=== PATIENT | female | born 1965 | race American Indian/Alaskan Native ===

== ENCOUNTER 2017-02-14 19:11 | Emergency (ER) | payer OTHER ==
[2017-02-14 19:18] VITALS: BP 126/65; RESP 16; TEMP 98; O2SAT 98
--- NOTE | 2017-02-14 19:46 | ED PDOC ---
HPI: Allergic Reaction Time Seen by Provider: 02/14/17 19:18 Chief Complaint (Nursing): Abnormal Skin Integrity Chief Complaint (Provider): Possible Allergic Reaction History Per: Patient, EMS, Family History/Exam Limitations: no limitations Onset/Duration Of Symptoms: Hrs (just prior to arrival) Current Symptoms Are (Timing): Better Possible Cause: Food (drank "Chicha Prince" at a restaurant) Associated Symptoms: Skin Rash (left forearm), Swelling (left 3rd, 4th, 5th fingers), Chest Pain (mild "tightness"). denies: Dyspnea, Trouble Swallowing, Dizziness, Itching Home/EMS Treatment: Other (aspirin x1) Additional Complaint(s): Issac Eason is a 51 year old female, with a past medical history inclusive of mitral valve prolapse, who presents to the ED on 02/14/17, via EMS and accompanied by a family member, for the evaluation of a possible allergic reaction, onset of which was approximately 30 minutes after she had ingested approximately 1/2 glass of "Chicha Prince" at a [place] restaurant; containing blue corn to which she has had an adverse reaction in the past. Reaction has been characterized by numbness/swelling in her left forearm, the 3rd, 4th and 5th fingers of her left hand and the 3rd, 4th and 5th toes of her left foot. Associated mild feelings of "chest tightness" also reported, in addition to a few possible hives on the volar aspect of the affected forearm, though she denies any pruritus upon initial evaluation and states that her symptoms seem to be improving. Further denies headache, dizziness, vision changes, outright chest pain, shortness of breath, cough, abdominal pain, nausea, vomiting, diarrhea, swelling to her face/eyes/lips/tongue/throat or a sense of impending doom. No prior history of anxiety or anaphylactic reactions. Has medicated with aspirin x1 prior to arrival per the direction of the ship pilot dispatcher. PMD: in [place] Past Medical History Reviewed: Historical Data, Nursing Documentation, Vital Signs Vital Signs: Last Vital Signs Temp 98.0 F 02/14/17 19:16 Pulse 77 02/14/17 19:16 Resp 16 02/14/17 19:16 BP 126/65 02/14/17 19:16 Pulse Ox 98 02/14/17 19:16 - Medical History PMH: Fractures (right leg), Mitral Valve Prolapse - Surgical History Other surgeries: hardware right leg (10 screws post fx, 2013) - Family History Family History: States: Unknown Family Hx - Home Medications Home Medications: Ambulatory Orders Medication Instructions Recorded DiphenhydrAMINE [Benadryl] 25 mg PO Q4H PRN #20 cap 02/14/17 Epinephrine [Epipen Auto-Injector] 0.3 mg MR ONCE PRN #0.3 ml 02/14/17 Famotidine [Pepcid] 40 mg PO TID PRN #30 tab 02/14/17 Methylprednisolone [Medrol Dose 4 mg PO DAILY PRN #21 mg 02/14/17 Pack (21 tabs)] - Allergies Allergies/Adverse Reactions: Allergies Allergy/AdvReac Type Severity Reaction Status Date / Time Penicillins Allergy RASH Verified 02/14/17 19:16 Review of Systems Eyes: Negative for: Vision Change ENT: Negative for: Mouth Swelling, Throat Pain, Throat Swelling Cardiovascular: Positive for: Chest Pain (tightness but not outright pain) Respiratory: Negative for: Cough, Shortness of Breath Gastrointestinal: Negative for: Vomiting, Abdominal Pain, Diarrhea Skin: Positive for: Rash (left forearm possible hives, non-pruritic) Neurological: Positive for: Numbness (left 3rd-5th fingers, left 3rd-5th toes). Negative for: Dizziness Physical Exam - Reviewed Nursing Documentation Reviewed: Yes Vital Signs Reviewed: Yes - Physical Exam Appears: Positive for: Non-toxic, No Acute Distress Head Exam: Positive for: ATRAUMATIC, NORMOCEPHALIC Skin: Positive for: Normal Color, Warm, Dry. Negative for: Diaphoresis, Pallor , Rash Eye Exam: Positive for: Normal appearance, PERRL ENT: Positive for: Pharynx Is (clear w/patent airway). Negative for: Other (no swelling to tongue/lips) Cardiovascular/Chest: Positive for: Regular Rate, Rhythm. Negative for: Murmur Respiratory: Positive for: Normal Breath Sounds. Negative for: Stridor, Wheezing, Respiratory Distress Pulses-Radial (L): 2+ Back: Positive for: Normal Inspection Extremity: Positive for: Normal ROM (FROM of ghulam extremities), Capillary Refill (<2 seconds), Swelling (noted to skin of left wrist), Other (neurovasc intact. numbness along ulnar aspect of hand. swelilng to wrist isolated to that area. ). Negative for: Deformity Neurologic/Psych: Positive for: Alert, Oriented. Negative for: Motor/Sensory Deficits (5/5 left wrist/arm/fingers, sensation intact) - ECG ECG: Positive for: Interpreted By Me, Viewed By Me ECG Rhythm: Positive for: Sinus Rhythm Interpretation Of Abn EKG: T-wave inversion in V3 but none in V4-6, otherwise unremarkable. Rate: 68 O2 Sat by Pulse Oximetry: 98 (RA) Pulse Ox Interpretation: Normal Disposition - Clinical Impression Clinical Impression: Wrist swelling, Food allergic skin reaction - Patient ED Disposition Is Patient to be Admitted: No Counseled Patient/Family Regarding: Studies Performed, Diagnosis, Need For Followup, Rx Given - Disposition Disposition: Routine/Home Disposition Time: 19:52 Condition: STABLE Prescriptions: DiphenhydrAMINE [Benadryl] 25 mg PO Q4H PRN #20 cap PRN Reason: Itching / Pruritus Epinephrine [Epipen Auto-Injector] 0.3 mg MR ONCE PRN #0.3 ml PRN Reason: Anaphylaxis Methylprednisolone [Medrol Dose Pack (21 tabs)] 4 mg PO DAILY PRN #21 mg PRN Reason: Itching / Pruritus Famotidine [Pepcid] 40 mg PO TID PRN #30 tab PRN Reason: Itching / Pruritus Instructions: Wrist Injury (ED), Food Allergy (ED), Anaphylaxis (ED), Tendinitis (ED) Medical Decision Making Medical Decision Makin:18 Initial Impression: wrist swelling, food allergic skin reaction Initial Plan: * EKG EKG shows NSR at 68bpm with a T-wave inversion in V3 but none in V4-6, as reviewed by QUAN. Otherwise unremarkable. Patient is medically stable and requires no further treatment in the ED at this time, will discharge home with Rx for benadryl, pepcid, a medrol dose pack and an epipen, the latter of which she was instructed to use only in cases of acute anaphylactic reaction. Symptoms of acute anaphylaxis explained to patient, who has expressed full understanding. Counseling was provided and all questions were answered regarding diagnosis and need for follow up with her PMD. There is agreement to discharge plan. Return if symptoms persist or worsen. Clinical Impression: wrist swelling, food allergic skin reaction Scribe Attestation: Documented by Sadia Cunningham, acting as a scribe for Promise Cross PA-C. Provider Scribe Attestation: All medical record entries made by the Scribe were at my direction and personally dictated by me. I have reviewed the chart and agree that the record accurately reflects my personal performance of the history, physical exam, medical decision making, and the department course for this patient. I have also personally directed, reviewed, and agree with the discharge instructions and disposition.
[2017-02-14 20:00] VITALS: PULSE 68
--- NOTE | 2017-02-15 08:04 | CARD ---
APPROVED REPORT EKG Measurement Heart [id number] <Conclusion> Normal sinus rhythm Nonspecific T wave abnormality Abnormal ECG
== END 2017-02-14 20:14 | disposition home or self-care (01) ==
LOC: H.ER 19:11
DX: T78.40XA Allergy, unspecified, initial encounter (principal); R07.89 Other chest pain; I34.1 Nonrheumatic mitral (valve) prolapse

== ENCOUNTER 2017-03-31 17:23 | Emergency (ER) | payer OTHER ==
[2017-03-31 17:38] VITALS: BP 118/71; PULSE 71; RESP 17; TEMP 98.2; O2SAT 100
--- NOTE | 2017-03-31 18:31 | ED PDOC ---
Syncope/Near Syncope/Dizzyness Time Seen by Provider: 03/31/17 17:49 Chief Complaint (Nursing): Syncope Chief Complaint (Provider): Near Syncope History Per: Patient Additional Complaint(s): Pt is a 51 yo female, no PMH, ambulates to ED for eval of near syncopal episode while walking to the train. Pt reports sitting down and the symptoms subsided. Pt reports the last time she ate was ~ 6 hours ago. Finger stick upon arrival 119. No chest pain or SOB. No diaphresis. No headache or dizziness. Past Medical History Reviewed: Nursing Documentation, Vital Signs Vital Signs: Last Vital Signs Temp 98.2 F 03/31/17 17:34 Pulse 71 03/31/17 17:34 Resp 17 03/31/17 17:34 BP 118/71 03/31/17 17:34 Pulse Ox 100 03/31/17 17:34 - Medical History PMH: Fractures (right leg), Mitral Valve Prolapse - Family History Family History: States: Unknown Family Hx - Social History Current smoker - smoking cessation education provided: No Alcohol: None Drugs: Denies - Home Medications Home Medications: Ambulatory Orders Medication Instructions Recorded DiphenhydrAMINE [Benadryl] 25 mg PO Q4H PRN #20 cap 02/14/17 Epinephrine [Epipen Auto-Injector] 0.3 mg MR ONCE PRN #0.3 ml 02/14/17 Famotidine [Pepcid] 40 mg PO TID PRN #30 tab 02/14/17 Methylprednisolone [Medrol Dose 4 mg PO DAILY PRN #21 mg 02/14/17 Pack (21 tabs)] - Allergies Allergies/Adverse Reactions: Allergies Allergy/AdvReac Type Severity Reaction Status Date / Time Penicillins Allergy RASH Verified 03/31/17 17:38 Review of Systems ROS Statement: Except As Marked, All Systems Reviewed And Found Negative Neurological: Positive for: Other (hear syncopal episode) Physical Exam - Reviewed Nursing Documentation Reviewed: Yes Vital Signs Reviewed: Yes - Physical Exam Appears: Positive for: Well, Non-toxic, No Acute Distress Head Exam: Positive for: ATRAUMATIC, NORMAL INSPECTION, NORMOCEPHALIC Skin: Positive for: Normal Color, Warm, DRY Eye Exam: Positive for: EOMI, Normal appearance, PERRL ENT: Positive for: Normal ENT Inspection Neck: Positive for: Normal, Painless ROM Cardiovascular/Chest: Positive for: Regular Rate, Rhythm Respiratory: Positive for: CNT, Normal Breath Sounds Gastrointestinal/Abdominal: Positive for: Normal Exam, Bowel Sounds, Soft Back: Positive for: Normal Inspection Extremity: Positive for: Normal ROM Neurologic/Psych: Positive for: Alert, Oriented - ECG O2 Sat by Pulse Oximetry: 100 Medical Decision Making Medical Decision Making: Finger stick 119 CXR: NAD, as read by QUAN Case endorsed to QUAN Butler at 20:00 pending diagnostic review and re-eval Disposition - Clinical Impression Clinical Impression: Near syncope - Patient ED Disposition Is Patient to be Admitted: No - Disposition Disposition: Transfer of Care ([facility]) Disposition Time: 20:00 Condition: STABLE - POA Present On Arrival: None
--- NOTE | 2017-03-31 18:53 | RAD ---
HISTORY: near syncope COMPARISON: None available TECHNIQUE: Chest PA and lateral FINDINGS: Examination limited by habitus. LUNGS: No focal consolidation. Please note that chest x-ray has limited sensitivity for the detection of pulmonary masses. PLEURA: No significant pleural effusion identified. No definite pneumothorax . CARDIOVASCULAR: Heart size appears top normal. OSSEOUS STRUCTURES: Degenerative changes of the spine. VISUALIZED UPPER ABDOMEN: Unremarkable. OTHER FINDINGS: None. IMPRESSION: No focal consolidation, significant pleural effusion, or definite pneumothorax identified.
[2017-03-31] MEDS ORDERED: Sodium Chloride 0.9% 1,000 ML IV STA (19:34)
[2017-03-31 21:50] LABS: BASO # 0.1 K/uL (0.0-0.2); EOS # 0.1 K/uL (0.0-0.7); EOS % 1.4 % (0.0-4.0); HEMATOCRIT 32.4 % (34.0-47.0); LYMPH % 49.7 % (20.0-40.0); MEAN CELL VOLUME 79.8 fl (81.0-99.0); MEAN CORPUSCULAR HEMOGLOBIN 25.5 pg (27.0-31.0); MEAN PLATELET VOLUME 6.1 fl (7.2-11.7); MONO # 0.5 K/uL (0.0-0.8); MONO % 8.6 % (0.0-10.0); NEUT # 2.4 K/uL (1.8-7.0); NEUT % 39.3 % (50.0-75.0); NRBC % 0.1 % (0.0-0.0); RED CELL DISTRIBUTION WIDTH 15.7 % (11.5-14.5); WHITE BLOOD COUNT 6.1 K/uL (4.8-10.8)
[2017-03-31 22:04] LABS: ALB/GLOB RATIO 1.2 (1.0-2.1); ALKALINE PHOSPHATASE 64 U/L (38-126); ALT/SGPT 34 U/L (9-52); AST/SGOT 26 U/L (14-36); BILIRUBIN,TOTAL 0.3 mg/dl (0.2-1.3); BLOOD UREA NITROGEN 9 mg/dl (7-17); CALCIUM 9.1 mg/dL (8.4-10.2); CARBON DIOXIDE 26 mmol/L (22-30); CHLORIDE 107 mmol/L (98-107); GFR AFRICAN-AMERICAN > 60; GLUCOSE,RANDOM 107 mg/dL (65-105); LIPASE 59 U/L (23-300); POTASSIUM 4.3 MMOL/L (3.6-5.0); SODIUM 140 mmol/l (132-148); TOTAL PROTEIN 6.4 G/DL (6.3-8.2)
[2017-03-31 22:28] LABS: PARTIAL THROMBOPLASTIN TIME 27.2 SECONDS (23.3-32.5)
[2017-04-01] MEDS ORDERED: Sodium Chloride 0.9% 50 ML IV ONE (00:50)
[2017-04-01] MEDS ORDERED: Iodixanol 320 MG/ML 100 ML BOTTLE IV ONE (00:50)
--- NOTE | 2017-04-01 01:54 | ED PDOC ---
- Laboratory Results Result Diagrams: 03/31/17 21:45 03/31/17 21:45 - ECG O2 Sat by Pulse Oximetry: 100 - Progress ED Course And Treament: Case endorsed to flex o writer operator from Alayna GLASS pending labs On re-eval, patient states she is feeling better. D Dimer added for patient recent travel history of return flight from [place] 2 days ago EXAM: CT Angiography Chest With Intravenous Contrast CLINICAL HISTORY: 51 years old, female; Signs and symptoms; Other: Elevated d-dimer; Additional info: Elevated d dimer TECHNIQUE: Axial computed tomographic angiography images of the chest with intravenous contrast using pulmonary embolism protocol. This CT exam was performed using one or more of the following dose reduction techniques: automated exposure control, adjustment of the mA and/or kV according to patient size, and/or use of iterative reconstruction technique. MIP reconstructed images were created and reviewed. Coronal and sagittal reformatted images were created and reviewed. CONTRAST: 95 mL of [id number] administered intravenously. COMPARISON: None FINDINGS: Pulmonary arteries: No pulmonary embolism. Aorta: No thoracic aortic aneurysm. Lungs: Trace left basilar atelectasis. No consolidation. Pleural spaces: No significant effusion. No pneumothorax. Heart: No cardiomegaly. No significant pericardial effusion. Mild right heart dysfunction. Bones: Moderate degenerative disease within the thoracic spine, without acute fracture. Lymph nodes: No pathologically enlarged lymph nodes. Small hiatal hernia. IMPRESSION: No pulmonary embolism. Trace left basilar atelectasis. Patient educated on findings, discharged with instructions to follow up PMD 2-3 days. Advised fluids, iron supplement. Return to ED for worsening/concerning symptoms. Disposition - Clinical Impression Clinical Impression: Near syncope, Anemia - POA Present On Arrival: None - Disposition Disposition: Routine/Home Disposition Time: 01:54 Condition: IMPROVED Additional Instructions: Follow up with primary doctor in 2-3 days. Take iron supplement as directed. Drink plenty of fluids. Return to ED for worsening/concerning symptoms. Instructions: Near Syncope (ED), Anemia (ED)
--- NOTE | 2017-04-01 08:16 | CT ---
PROCEDURE: CT Chest with contrast (Pulmonary Angiogram) HISTORY: elevated d dimer COMPARISON: None available. TECHNIQUE: Axial computed tomography images were obtained of the chest in the pulmonary arterial phase of enhancement. Coronal and sagittal reformatted images were created and reviewed. Intravenous contrast dose: 95 cc of Visipaque 320 Radiation dose: Total exam DLP = 415.25 mGy-cm. This CT exam was performed using one or more of the following dose reduction techniques: Automated exposure control, adjustment of the mA and/or kV according to patient size, and/or use of iterative reconstruction technique. FINDINGS: PULMONARY ARTERIES: Unremarkable. No pulmonary embolism. AORTA: No acute findings. No thoracic aortic aneurysm. The main pulmonary artery is mildly enlarged. LUNGS: No evidence of acute pulmonary disease. Mild bilateral posterior atelectasis noted. . No nodule, mass or pulmonary consolidation. PLEURAL SPACES: Unremarkable. No effusion or pneuomothorax. HEART: The cardiac silhouette is upper normal/ mildly enlarged. No significant pericardial effusion. LYMPH NODES: No lymphadenopathy. BONES, CHEST WALL: Unremarkable. No fracture or destructive lesion OTHER FINDINGS: Unremarkable. IMPRESSION: No evidence of pulmonary embolus. Mild posterior dependent atelectasis. Mildly dilated and mildly thick distal esophagus. Correlate clinically for gastroesophageal reflux. Preliminary report was submitted by [facility].
--- NOTE | 2017-04-01 10:12 | CARD ---
APPROVED REPORT EKG Measurement Heart [id number] <Conclusion> Normal sinus rhythm Nonspecific T wave abnormality Abnormal ECG
== END 2017-04-01 02:19 | disposition home or self-care (01) ==
LOC: H.ER 17:23
DX: R55 Syncope and collapse (principal); D64.9 Anemia, unspecified

== ENCOUNTER 2017-04-05 00:54 | Emergency (ER) | payer OTHER ==
[2017-04-05 01:07] VITALS: BP 133/78; PULSE 72; RESP 16; TEMP 97.7; O2SAT 100
--- NOTE | 2017-04-05 01:40 | ED PDOC ---
HPI: Allergic Reaction Time Seen by Provider: 04/05/17 01:07 Chief Complaint (Nursing): Allergic Reaction Chief Complaint (Provider): allergic reaction History Per: Patient History/Exam Limitations: no limitations Onset/Duration Of Symptoms: Sudden Onset Current Symptoms Are (Timing): Still Present Possible Cause: Food Additional Complaint(s): 51yo female presents to the ED for evaluation of numbness to left lower gums after eating falafel. No SOB or lip swelling. Of note, patient was here in January for similar complaint but at that time it was food with corn in it. Patient complained of similar numbness at that time and was discharged with EpiPen, steroids, benadryl, and pepcid. Patient denies any other medical complaints. Past Medical History Reviewed: Historical Data, Nursing Documentation, Vital Signs Vital Signs: Last Vital Signs Temp 97.7 F 04/05/17 01:04 Pulse 72 04/05/17 01:04 Resp 16 04/05/17 01:04 BP 133/78 04/05/17 01:04 Pulse Ox 100 04/05/17 01:04 - Medical History PMH: Fractures (right leg), Mitral Valve Prolapse - Surgical History Surgical History: No Surg Hx - Family History Family History: States: Unknown Family Hx - Social History Current smoker - smoking cessation education provided: No Alcohol: None Drugs: Denies - Home Medications Home Medications: Ambulatory Orders Medication Instructions Recorded DiphenhydrAMINE [Benadryl] 25 mg PO Q4H PRN #20 cap 02/14/17 Epinephrine [Epipen Auto-Injector] 0.3 mg MR ONCE PRN #0.3 ml 02/14/17 Famotidine [Pepcid] 40 mg PO TID PRN #30 tab 02/14/17 Methylprednisolone [Medrol Dose 4 mg PO DAILY PRN #21 mg 02/14/17 Pack (21 tabs)] - Allergies Allergies/Adverse Reactions: Allergies Allergy/AdvReac Type Severity Reaction Status Date / Time Penicillins Allergy RASH Verified 04/05/17 01:04 Review of Systems ROS Statement: Except As Marked, All Systems Reviewed And Found Negative ENT: Positive for: Other (left lower gum numbness, no lip swelling ) Respiratory: Negative for: Shortness of Breath Physical Exam - Reviewed Nursing Documentation Reviewed: Yes Vital Signs Reviewed: Yes - Physical Exam Appears: Positive for: Well, Non-toxic, No Acute Distress Head Exam: Positive for: ATRAUMATIC, NORMAL INSPECTION, NORMOCEPHALIC Skin: Positive for: Normal Color, Warm, Dry. Negative for: Rash Eye Exam: Positive for: Normal appearance, EOMI, PERRL ENT: Positive for: Pharynx Is (clear ), Other (some crowns and pulled teeth noted to lower left side of mouth ). Negative for: Pharyngeal Erythema, Tonsillar Exudate, Tonsillar Swelling Neck: Positive for: Normal, Painless ROM, Supple Cardiovascular/Chest: Positive for: Regular Rate, Rhythm. Negative for: Murmur , Tachycardia Respiratory: Positive for: Normal Breath Sounds. Negative for: Wheezing, Respiratory Distress Gastrointestinal/Abdominal: Positive for: Normal Exam, Soft. Negative for: Tenderness Back: Positive for: Normal Inspection Extremity: Positive for: Normal ROM. Negative for: Deformity, Swelling Neurologic/Psych: Positive for: Alert, Oriented - ECG O2 Sat by Pulse Oximetry: 100 Pulse Ox Interpretation: Normal (RA) - Progress ED Course And Treament: 0124: Impression: allergic reaction Plan: Benadryl 50mg PO reassess 0314: Patient reports improvement in symptoms after Benadryl and is stable for d /c. Advised to f/u with her PCP in 1-2 days and return to the ED with any worsening or concerning symptoms. Instructed to take Benadryl every 6 hours as needed. pt has epipen from last visit for prior allergic reaction. Scribe Attestation: Documented by Nathalie Foley acting as a scribe for Frances Gil MD. Provider Scribe Attestation: All medical record entries made by the Scribe were at my direction and personally dictated by me. I have reviewed the chart and agree that the record accurately reflects my personal performance of the history, physical exam, medical decision making, and the department course for this patient. I have also personally directed, reviewed, and agree with the discharge instructions and disposition. Disposition - Clinical Impression Clinical Impression: Allergic reaction - Patient ED Disposition Is Patient to be Admitted: No Counseled Patient/Family Regarding: Studies Performed, Diagnosis, Need For Followup - Disposition Disposition: Routine/Home Disposition Time: 03:16 Condition: IMPROVED Additional Instructions: follow up with your primary doctor in 1-2 day take benadryl every 6 hours as needed return to the ED with any worsening or concerning symptoms. Instructions: General Allergic Reaction (ED)
== END 2017-04-05 03:23 | disposition home or self-care (01) ==
LOC: H.ER 00:54
DX: T78.40XA Allergy, unspecified, initial encounter (principal); Z88.0 Allergy status to penicillin; I34.1 Nonrheumatic mitral (valve) prolapse

== ENCOUNTER 2017-09-08 16:19 | Emergency (ER) | payer OTHER ==
[2017-09-08 16:29] VITALS: BP 130/77; PULSE 76; RESP 16; TEMP 98.1; O2SAT 100
--- NOTE | 2017-09-08 17:09 | ED PDOC ---
HPI: Allergic Reaction Time Seen by Provider: 09/08/17 16:50 Chief Complaint (Nursing): Allergic Reaction Chief Complaint (Provider): Possible allergic reaction History Per: Patient History/Exam Limitations: no limitations Onset/Duration Of Symptoms: Days (1) Additional Complaint(s): Patient is a 51 y/o female with no significant past medical history presenting to the emergency department for a possible allergic reaction. Reports that she ate a vitamin D gummy when she started feeling tightening of her throat and tingling on her lips. She then took 25 mg of Benadryl which relieved the symptoms. Denies coughing, or any current complaints. Patient notes similar symptoms from sesame seed oil and other vitamin D supplements. PCP: none provided. Past Medical History Reviewed: Historical Data, Nursing Documentation, Vital Signs Vital Signs: Last Vital Signs Temp 98.1 F 09/08/17 16:26 Pulse 76 09/08/17 16:26 Resp 16 09/08/17 16:26 BP 130/77 09/08/17 16:26 Pulse Ox 100 09/08/17 16:26 - Medical History PMH: Fractures (right leg), Mitral Valve Prolapse - Surgical History Surgical History: No Surg Hx - Family History Family History: States: Unknown Family Hx - Home Medications Home Medications: Ambulatory Orders Medication Instructions Recorded DiphenhydrAMINE [Benadryl] 25 mg PO Q4H PRN #20 cap 02/14/17 Epinephrine [Epipen Auto-Injector] 0.3 mg MR ONCE PRN #0.3 ml 02/14/17 Famotidine [Pepcid] 40 mg PO TID PRN #30 tab 02/14/17 Methylprednisolone [Medrol Dose 4 mg PO DAILY PRN #21 mg 02/14/17 Pack (21 tabs)] DiphenhydrAMINE [Benadryl] 1 tab PO Q6 PRN #24 cap 09/08/17 Epinephrine HCl [Epipen 0.3 mg IM ONCE PRN #0.3 ml 09/08/17 Auto-Injector] Famotidine [Pepcid] 20 mg PO BID #10 tab 09/08/17 Prednisone [Deltasone] 3 tab PO DAILY #15 tablet 09/08/17 - Allergies Allergies/Adverse Reactions: Allergies Allergy/AdvReac Type Severity Reaction Status Date / Time Penicillins Allergy RASH Verified 09/08/17 16:25 Review of Systems ROS Statement: Except As Marked, All Systems Reviewed And Found Negative ENT: Positive for: Other (resolved lip tingling and throat tightening) Physical Exam - Reviewed Nursing Documentation Reviewed: Yes Vital Signs Reviewed: Yes - Physical Exam Appears: Positive for: Well, Non-toxic, No Acute Distress Head Exam: Positive for: ATRAUMATIC, NORMAL INSPECTION, NORMOCEPHALIC Skin: Positive for: Normal Color, Warm, Dry Eye Exam: Positive for: Normal appearance ENT: Positive for: Normal ENT Inspection. Negative for: Tonsillar Swelling ( throat swelling) Neck: Positive for: Normal Cardiovascular/Chest: Positive for: Regular Rate, Rhythm Respiratory: Positive for: Normal Breath Sounds. Negative for: Accessory Muscle Use, Respiratory Distress Extremity: Positive for: Normal ROM Neurologic/Psych: Positive for: Alert, Oriented (x3) - ECG O2 Sat by Pulse Oximetry: 100 (RA) Pulse Ox Interpretation: Normal Disposition - Clinical Impression Clinical Impression: Acute allergic reaction - Patient ED Disposition Is Patient to be Admitted: No Counseled Patient/Family Regarding: Diagnosis, Rx Given - Disposition Disposition: Routine/Home Disposition Time: 17:00 Condition: FAIR Prescriptions: DiphenhydrAMINE [Benadryl] 1 tab PO Q6 PRN #24 cap PRN Reason: Itching / Pruritus Epinephrine HCl [Epipen Auto-Injector] 0.3 mg IM ONCE PRN #0.3 ml PRN Reason: Anaphylaxis Famotidine [Pepcid] 20 mg PO BID #10 tab Prednisone [Deltasone] 3 tab PO DAILY #15 tablet Instructions: General Allergic Reaction (ED) Forms: [employer] (Slovenian) Medical Decision Making Medical Decision Makin Initial impression: possible allergic reaction As discussed with patient, if symptoms return, will start treatment with Prednisone and Pepcid. Upon provider reevaluation patient is feeling better, is medically stable, and requires no further treatment in the ED at this time. Patient will be discharged with Rx for Benadryl, Epipen, Pepcid and Deltasone. Counseling was provided and all questions were answered regarding diagnosis. There is agreement to discharge plan. Return if symptoms persist or worsen. Clinical Impression: Acute allergic reaction Scribe Attestation: Documented by Shena Colmenares, acting as a scribe for MOIZ Gagnon. Provider Scribe Attestation: All medical record entries made by the Scribe were at my direction and personally dictated by me. I have reviewed the chart and agree that the record accurately reflects my personal performance of the history, physical exam, medical decision making, and the department course for this patient. I have also personally directed, reviewed, and agree with the discharge instructions and disposition.
== END 2017-09-08 17:26 | disposition home or self-care (01) ==
LOC: H.ER 16:19
DX: T78.40XA Allergy, unspecified, initial encounter (principal)

== ENCOUNTER 2017-09-22 20:20 | Emergency (ER) | payer OTHER ==
[2017-09-22 20:33] VITALS: BP 110/70; PULSE 77; RESP 16; TEMP 98; O2SAT 99
--- NOTE | 2017-09-22 21:08 | ED PDOC ---
HPI: Allergic Reaction Time Seen by Provider: 09/22/17 20:39 Chief Complaint (Nursing): Shortness Of Breath Chief Complaint (Provider): possible allergic reaction History Per: Patient History/Exam Limitations: no limitations Onset/Duration Of Symptoms: Hrs Current Symptoms Are (Timing): Gone Now Additional History Per: Patient Additional Complaint(s): 51 y/o female no past medical history presents for evaluation of possible allergic reaction prior to arrival. Patient states she was at a [employer] restaurant eating guacamole and chips when she felt tightening of her throat and swelling to her tongue. Patient states she drank water and symptoms seemed to have subsided. Patient states she has been seen multiple time for similar symptoms, which is usually preceded by eating something. Patient is being followed by her PMD for symptoms, and was sent to director sales training for possible goiter, as well as referrals for ENT and salon sales consultant. Patient denies headache, fever, dizziness, chest pain, shortness of breath, difficulty speaking/ swallowing, nausea/vomiting, abdominal pain. Past Medical History Reviewed: Historical Data, Nursing Documentation, Vital Signs Vital Signs: Last Vital Signs Temp 98.0 F 09/22/17 20:29 Pulse 77 09/22/17 20:29 Resp 16 09/22/17 20:29 BP 110/70 09/22/17 20:29 Pulse Ox 99 09/22/17 20:29 - Medical History PMH: Fractures (right leg), Mitral Valve Prolapse Denies: Chronic Kidney Disease - Family History Family History: States: Unknown Family Hx - Home Medications Home Medications: Ambulatory Orders Medication Instructions Recorded DiphenhydrAMINE [Benadryl] 25 mg PO Q4H PRN #20 cap 02/14/17 Epinephrine [Epipen Auto-Injector] 0.3 mg MR ONCE PRN #0.3 ml 02/14/17 Famotidine [Pepcid] 40 mg PO TID PRN #30 tab 02/14/17 Methylprednisolone [Medrol Dose 4 mg PO DAILY PRN #21 mg 02/14/17 Pack (21 tabs)] DiphenhydrAMINE [Benadryl] 1 tab PO Q6 PRN #24 cap 09/08/17 Epinephrine HCl [Epipen 0.3 mg IM ONCE PRN #0.3 ml 09/08/17 Auto-Injector] Famotidine [Pepcid] 20 mg PO BID #10 tab 09/08/17 Prednisone [Deltasone] 3 tab PO DAILY #15 tablet 09/08/17 - Allergies Allergies/Adverse Reactions: Allergies Allergy/AdvReac Type Severity Reaction Status Date / Time Penicillins Allergy RASH Verified 09/22/17 20:29 Review of Systems ROS Statement: Except As Marked, All Systems Reviewed And Found Negative ENT: Positive for: Throat Swelling Physical Exam - Reviewed Nursing Documentation Reviewed: Yes Vital Signs Reviewed: Yes - Physical Exam Appears: Positive for: Well, Non-toxic, No Acute Distress (resting comfortably, speaking in full sentences) Head Exam: Positive for: ATRAUMATIC, NORMAL INSPECTION, NORMOCEPHALIC Skin: Positive for: Normal Color Eye Exam: Positive for: Normal appearance ENT: Positive for: Normal ENT Inspection, Other (airway patent, uvula midline). Negative for: Pharyngeal Erythema, Tonsillar Exudate, Tonsillar Swelling Neck: Positive for: Normal, Painless ROM Cardiovascular/Chest: Positive for: Regular Rate, Rhythm Respiratory: Positive for: Normal Breath Sounds Gastrointestinal/Abdominal: Positive for: Normal Exam Back: Positive for: Normal Inspection Extremity: Positive for: Normal ROM Neurologic/Psych: Positive for: Alert, Oriented - ECG O2 Sat by Pulse Oximetry: 99 - Progress ED Course And Treament: Benadryl PO Patient asymptomatic, vitals stable, no respiratory distress. Patient requires no further intervention in the ED and is stable for discharge. Patient seen in ED 09/08/17 with similar presentation,, states she was given prescriptions for benadryl, prednisone, and epipen which she has not filled. Patient advised to fill prescriptions and take as directed. Follow up with specialists as advised by PMD. Return to ED for worsening/concerning symptoms. Disposition - Clinical Impression Clinical Impression: Allergic reaction - Patient ED Disposition Is Patient to be Admitted: No Counseled Patient/Family Regarding: Diagnosis, Need For Followup - Disposition Disposition: Routine/Home Disposition Time: 21:16 Condition: GOOD Additional Instructions: Follow up with specialists as previously instructed. Fill medications from previous ED visit and take as directed. Return to ED for worsening/concerning symptoms. Instructions: Food Allergy (ED) Forms: [employer] (Mozambican)
== END 2017-09-22 22:13 | disposition home or self-care (01) ==
LOC: H.ER 20:20
DX: T78.40XA Allergy, unspecified, initial encounter (principal); I34.1 Nonrheumatic mitral (valve) prolapse; Z88.0 Allergy status to penicillin

== ENCOUNTER 2017-09-29 21:34 | Emergency (ER) | payer OTHER ==
[2017-09-29 21:48] VITALS: BP 124/79; PULSE 76; RESP 20; TEMP 98.8; O2SAT 97
--- NOTE | 2017-09-29 22:14 | ED PDOC ---
HPI: CCC, URI, Sore Throat Time Seen by Provider: 09/29/17 21:57 Chief Complaint (Nursing): ENT Problem Chief Complaint (Provider): ENT Problem History Per: Patient History/Exam Limitations: no limitations Onset/Duration Of Symptoms: Days (x3 weeks) Current Symptoms Are (Timing): Better Additional Complaint(s): Issac Aguilar is a 51 year old female who presents to the emergency department with a complaint of throat swelling ongoing for 3 weeks. Of note, patient was seen in ED multiple times for similar symptoms. She stated she saw an ENT in [place] recently with abnormal laryngoscopy results which prompted CT neck and thyroid US. Patient also went to urgent care earlier today who suggested staying on current Benadryl 15mg, Prednisone 60mg and Pepcid 20mg regime with pending orthopedic specialist appointment for tomorrow. She reported feeling better upon arrival to ED. PMD: none provided Past Medical History Reviewed: Historical Data, Nursing Documentation, Vital Signs Vital Signs: Last Vital Signs Temp 98.8 F 09/29/17 21:43 Pulse 76 09/29/17 21:43 Resp 20 09/29/17 21:43 BP 124/79 09/29/17 21:43 Pulse Ox 97 09/29/17 22:26 - Medical History PMH: Fractures (right leg), Mitral Valve Prolapse Denies: Chronic Kidney Disease - Surgical History Other surgeries: right foot - Family History Family History: States: Unknown Family Hx - Social History Current smoker - smoking cessation education provided: No Alcohol: Social Drugs: Denies - Home Medications Home Medications: Ambulatory Orders Medication Instructions Recorded DiphenhydrAMINE [Benadryl] 25 mg PO Q4H PRN #20 cap 02/14/17 Epinephrine [Epipen Auto-Injector] 0.3 mg MR ONCE PRN #0.3 ml 02/14/17 Famotidine [Pepcid] 40 mg PO TID PRN #30 tab 02/14/17 Methylprednisolone [Medrol Dose 4 mg PO DAILY PRN #21 mg 02/14/17 Pack (21 tabs)] DiphenhydrAMINE [Benadryl] 1 tab PO Q6 PRN #24 cap 09/08/17 Epinephrine HCl [Epipen 0.3 mg IM ONCE PRN #0.3 ml 09/08/17 Auto-Injector] Famotidine [Pepcid] 20 mg PO BID #10 tab 09/08/17 Prednisone [Deltasone] 3 tab PO DAILY #15 tablet 09/08/17 - Allergies Allergies/Adverse Reactions: Allergies Allergy/AdvReac Type Severity Reaction Status Date / Time Penicillins Allergy RASH Verified 09/22/17 20:29 Review of Systems ROS Statement: Except As Marked, All Systems Reviewed And Found Negative ENT: Positive for: Throat Swelling Physical Exam - Reviewed Nursing Documentation Reviewed: Yes Vital Signs Reviewed: Yes - Physical Exam Appears: Positive for: Well, Non-toxic, No Acute Distress Head Exam: Positive for: ATRAUMATIC, NORMAL INSPECTION, NORMOCEPHALIC Skin: Positive for: Normal Color Eye Exam: Positive for: Normal appearance ENT: Positive for: Normal ENT Inspection. Negative for: Pharyngeal Erythema, Tonsillar Exudate, Tonsillar Swelling Neck: Positive for: Normal, Painless ROM, Supple. Negative for: Decreased ROM Cardiovascular/Chest: Positive for: Regular Rate, Rhythm, Chest Non Tender Respiratory: Positive for: Normal Breath Sounds, Accessory Muscle Use. Negative for: Decreased Breath Sounds, Respiratory Distress Neurologic/Psych: Positive for: Alert, Oriented - ECG O2 Sat by Pulse Oximetry: 97 (RA) Pulse Ox Interpretation: Normal Medical Decision Making Medical Decision Making: Initial Impression: Throat swelling Scribe Attestation: Documented by Irina Sanchez, acting as a scribe for Sarita Alba MD. Provider Scribe Attestation: All medical record entries made by the Scribe were at my direction and personally dictated by me. I have reviewed the chart and agree that the record accurately reflects my personal performance of the history, physical exam, medical decision making, and the department course for this patient. I have also personally directed, reviewed, and agree with the discharge instructions and disposition. Disposition - Clinical Impression Clinical Impression: Allergic reaction - Patient ED Disposition Is Patient to be Admitted: No - Disposition Disposition: Routine/Home Disposition Time: 22:39 Condition: IMPROVED Additional Instructions: FOLLOW-UP WITH PMD WITHIN 2 DAYS FOR REEVALUATION AND CANT HOOKER TOMORROW. CONTINUE CURRENT MEDICATIONS. Instructions: Allergies (ED) Forms: [employer] (Khmer)
== END 2017-09-29 22:54 | disposition home or self-care (01) ==
LOC: H.ER 21:34
DX: T78.40XA Allergy, unspecified, initial encounter (principal); I34.1 Nonrheumatic mitral (valve) prolapse; Z88.0 Allergy status to penicillin

== ENCOUNTER 2017-10-19 14:13 | Observation (INO) | payer OTHER ==
--- NOTE | 2017-10-19 15:12 | ED PDOC ---
HPI: Chest Pain Time Seen by Provider: 10/19/17 14:37 Chief Complaint (Nursing): Chest Pain Chief Complaint (Provider): Chest pain History Per: Patient History/Exam Limitations: no limitations Onset/Duration Of Symptoms: Days (2 hrs [employer]) Current Symptoms Are (Timing): Still Present Additional Complaint(s): Pt. with chest pain on the right now going to the left. States started 2 hrs [employer]. Better at rest, but still present. No dyspnea, weakness, nausea, vomit, diarrhea, headaches, dizziness. No back pain. No long distance travel, hormones, leg pain. Has had extensive workup for esophageal spasms and is suppose to see GI. Past Medical History Reviewed: Historical Data, Nursing Documentation, Vital Signs Vital Signs: Last Vital Signs Temp 98 F 10/19/17 14:24 Pulse 83 10/19/17 14:24 Resp 18 10/19/17 14:24 BP 123/68 10/19/17 14:24 Pulse Ox 99 10/19/17 15:18 - Medical History PMH: Fractures (right leg), Mitral Valve Prolapse Denies: Chronic Kidney Disease Other PMH: esophageal spasms - Family History Family History: States: Unknown Family Hx - Social History Current smoker - smoking cessation education provided: No Alcohol: None Drugs: Denies - Home Medications Home Medications: Ambulatory Orders Medication Instructions Recorded DiphenhydrAMINE [Benadryl] 1 tab PO Q6 PRN #24 cap 09/08/17 Epinephrine HCl [Epipen 0.3 mg IM ONCE PRN #0.3 ml 09/08/17 Auto-Injector] Famotidine [Pepcid] 20 mg PO BID #10 tab 09/08/17 - Allergies Allergies/Adverse Reactions: Allergies Allergy/AdvReac Type Severity Reaction Status Date / Time nickel Allergy RASH Verified 10/19/17 14:23 Penicillins Allergy RASH Verified 09/22/17 20:29 Review of Systems ROS Statement: Except As Marked, All Systems Reviewed And Found Negative Cardiovascular: Positive for: Chest Pain Physical Exam - Reviewed Nursing Documentation Reviewed: Yes Vital Signs Reviewed: Yes - Physical Exam Appears: Positive for: Non-toxic, No Acute Distress Head Exam: Positive for: ATRAUMATIC, NORMAL INSPECTION, NORMOCEPHALIC Skin: Positive for: Normal Color, Warm, DRY Eye Exam: Positive for: EOMI, Normal appearance, PERRL ENT: Positive for: Normal ENT Inspection Neck: Positive for: Normal, Painless ROM, Supple Cardiovascular/Chest: Positive for: Regular Rate, Rhythm, Chest Non Tender. Negative for: Edema Respiratory: Positive for: CNT, Normal Breath Sounds Gastrointestinal/Abdominal: Positive for: Normal Exam, Bowel Sounds, Soft. Negative for: Tenderness Back: Positive for: Normal Inspection. Negative for: L CVA Tenderness, R CVA Tenderness Extremity: Positive for: Normal ROM. Negative for: Tenderness, Pedal Edema Neurologic/Psych: Positive for: Alert, Oriented - Laboratory Results Result Diagrams: 10/19/17 15:37 10/19/17 15:37 Interpretation Of Abn Labs: no acute - ECG ECG: Positive for: Interpreted By Me, Viewed By Me ECG Rhythm: Positive for: Normal QRS, Sinus Rhythm, Nonspecific Changes O2 Sat by Pulse Oximetry: 99 Pulse Ox Interpretation: Normal - Radiology X-Ray: Read By Radiologist X-Ray Interpretation: No Acute Disease - Progress ED Course And Treament: 1517: Stable. AAOx3. Pt. refusing IV line. Made aware of all findings till now and need for eval. 1616: Stable. Pt. persistent to get US of her gall bladder. Will get US. Dr. Alba to take over care. Fu on US and dispo pt. Pt. unclear if she is willing to stay in the hospital for chest pain eval. Disposition - Clinical Impression Clinical Impression: Chest pain - Patient ED Disposition Is Patient to be Admitted: Transfer of Care - Disposition Disposition: Transfer of Care Disposition Time: 16:17 Condition: STABLE Patient Signed Over To: Sarita Alba
--- NOTE | 2017-10-19 15:41 | RAD ---
HISTORY: dyspnea COMPARISON: Chest radiograph dated 03/31/2017. TECHNIQUE: Chest PA and lateral FINDINGS: LUNGS: No active pulmonary disease. PLEURA: No significant pleural effusion identified. No pneumothorax apparent. CARDIOVASCULAR: Normal. OSSEOUS STRUCTURES: Spinal degenerative changes. VISUALIZED UPPER ABDOMEN: Normal. OTHER FINDINGS: None. IMPRESSION: No active disease.
[2017-10-19 15:54] LABS: BASO % 0.6 % (0.0-2.0); EOS % 0.5 % (0.0-4.0); HEMATOCRIT 37.2 % (34.0-47.0); LYMPH # 1.9 K/uL (1.0-4.3); LYMPH % 37.1 % (20.0-40.0); MEAN CELL VOLUME 88.6 fl (81.0-99.0); MEAN CORPUSCULAR HEMOGLOBIN 28.5 pg (27.0-31.0); MEAN CORPUSCULAR HGB CONC 32.1 g/dL (33.0-37.0); MEAN PLATELET VOLUME 6.4 fl (7.2-11.7); MONO # 0.5 K/uL (0.0-0.8); MONO % 10.3 % (0.0-10.0); NEUT # 2.6 K/uL (1.8-7.0); NEUT % 51.5 % (50.0-75.0); NRBC % 0.1 % (0.0-0.0); RED CELL DISTRIBUTION WIDTH 13.9 % (11.5-14.5)
[2017-10-19 15:55] LABS: ALB/GLOB RATIO 1.4 (1.0-2.1); ALKALINE PHOSPHATASE 60 U/L (38-126); ALT/SGPT 33 U/L (9-52); AST/SGOT 24 U/L (14-36); BILIRUBIN,TOTAL 0.3 mg/dl (0.2-1.3); BLOOD UREA NITROGEN 9 mg/dl (7-17); CALCIUM 9.1 mg/dL (8.4-10.2); CARBON DIOXIDE 29 mmol/L (22-30); CHLORIDE 103 mmol/L (98-107); GFR AFRICAN-AMERICAN > 60; GLUCOSE,RANDOM 88 mg/dL (65-105); LIPASE 57 U/L (23-300); POTASSIUM 4.2 MMOL/L (3.6-5.0); SODIUM 139 mmol/l (132-148); TOTAL PROTEIN 6.8 G/DL (6.3-8.2)
--- NOTE | 2017-10-19 17:01 | US ---
HISTORY: abd pain RUQ COMPARISON: None. TECHNIQUE: Sonographic evaluation of the right upper quadrant of the abdomen. FINDINGS: LIVER: Measures 14.7 cm in length. Normal echogenicity of the liver parenchyma. No mass. No intrahepatic bile duct dilatation. GALLBLADDER: Unremarkable. No gallstones. COMMON BILE DUCT: Measures to mm. No stones. No dilatation. PANCREAS: Unremarkable as visualized. No mass. No ductal dilatation. RIGHT KIDNEY: Measures 9.7 cm in length. Normal echogenicity. No calculus, mass, or hydronephrosis. AORTA: No aneurysmal dilatation. IVC: Unremarkable. OTHER FINDINGS: None . IMPRESSION: No evidence of cholelithiasis or cholecystitis. Unremarkable examination
--- NOTE | 2017-10-19 17:24 | ED PDOC ---
- Laboratory Results Result Diagrams: 10/19/17 15:37 10/19/17 15:37 - ECG O2 Sat by Pulse Oximetry: 99 Medical Decision Making Medical Decision Making: Time: 1745 --Patient signed out against medical advice (AMA). 18:30 Pt changed her mind and now willing to be admitted. Disposition - Clinical Impression Clinical Impression: Chest pain - Disposition Disposition: AGAINST MEDICAL ADVICE Disposition Time: 17:45 Condition: STABLE Forms: [employer] (Romanian) Addendum Addendum: 10/19/17 17:00 Pt signed out by [address] London pending ultrasound.
[2017-10-20 00:33] VITALS: RESP 18
--- NOTE | 2017-10-20 07:47 | CARD ---
APPROVED REPORT EKG Measurement Heart [id number] <Conclusion> Normal sinus rhythm Nonspecific T wave abnormality Abnormal ECG
[2017-10-20 08:19] VITALS: O2SAT 100
[2017-10-20] MEDS ORDERED: Enoxaparin 40 mg Syringe SC SCH (09:00)
--- NOTE | 2017-10-20 10:51 | CP.PCM.CON ---
History of Present Illness - History of Present Illness History of Present Illness: This 51-year-old -[place] female came into the emergency room after experiencing some discomfort on the right side of her chest followed by a brief period of discomfort on the left side of her chest. Both of these were associated by aggravation of this sensation on taking deep breaths. The patient is physically quite active and can walk a couple of miles without difficulty. She is not a smoker or diabetic or hypertensive. She denies any chronic illnesses. She also indicates that this discomfort in the chest was accompanied by marked tenderness in the parasternal region right and left side. She denies any family history of vascular disease or diabetes or high blood pressure. Physical examination shows a young -[place] female alert awake oriented and afebrile sitting up in bed and comfortable. Her pulse rate was 64 bpm and regular and her blood pressure was 122/74 mmHg. Her jugular venous pressure was not elevated and there was no edema over his lower extremities. A scar of surgery on the right ankle was evident. Her pedal pulses were well felt. There were no carotid bruits. The apex was not palpable the first and second heart sounds are normal. There was no murmur no gallop and no rales. There was mild tenderness in the right parasternal region and her discomfort could be reproduced by gently pressing in this area. Her electric cardiogram showed sinus rhythm with nonspecific ST changes. Her echocardiogram showed normal left ventricular systolic function with no evidence of significant valvulopathy. Her lab data showed normal hemoglobin and hematocrit and normal BUN/creatinine and normal electrolytes. Troponin levels on 3 separate occasions 8 hours apart were consistently negative for any evidence of myocyte injury. Impression: Chest wall pain with no evidence of acute coronary syndrome. The patient may be allowed to return home and continue seeing her primary care physician in case her symptoms persist. Past Patient History - Past Medical History & Family History Past Medical History?: Yes - Past Social History Smoking Status: Never Smoked - CARDIAC Hx Mitral Valve Prolapse: Yes - PULMONARY Hx Respiratory Disorders: No - NEUROLOGICAL Hx Neurological Disorder: No - HEENT Hx HEENT Problems: No - RENAL Hx Chronic Kidney Disease: No - ENDOCRINE/METABOLIC Hx Endocrine Disorders: No - HEMATOLOGICAL/ONCOLOGICAL Hx Blood Disorders: No - INTEGUMENTARY Hx Dermatological Problems: No - MUSCULOSKELETAL/RHEUMATOLOGICAL Hx Falls: No - GASTROINTESTINAL Hx Gastrointestinal Disorders: No Hx Gastroesophageal Reflux: Yes - GENITOURINARY/GYNECOLOGICAL Hx Genitourinary Disorders: No - PSYCHIATRIC Hx Substance Use: No - SURGICAL HISTORY Hx Surgeries: Yes Hx Orthopedic Surgery: Yes (right foot) - ANESTHESIA Hx Anesthesia: Yes Hx Anesthesia Reactions: No Meds Home Medications: Home Medication List Medication Instructions Recorded Confirmed Type Famotidine [Pepcid] 20 mg PO BID #30 tab 10/20/17 Rx Allergies/Adverse Reactions: Allergies Allergy/AdvReac Type Severity Reaction Status Date / Time nickel Allergy RASH Verified 10/19/17 14:23 Penicillins Allergy RASH Verified 09/22/17 20:29 - Medications Medications: Current Medications Acetaminophen (Tylenol 325mg Tab) 650 mg PO Q6 PRN PRN Reason: Pain, Mild (1-3) Last Admin: 10/20/17 00:24 Dose: 650 mg Enoxaparin Sodium (Lovenox) 40 mg SC DAILY [facility] PRN Reason: Protocol Last Admin: 10/20/17 08:14 Dose: 40 mg Famotidine (Pepcid) 20 mg PO BID [facility] Last Admin: 10/20/17 08:14 Dose: 20 mg Ondansetron HCl (Zofran Inj) 4 mg IVP Q6 PRN PRN Reason: Nausea/Vomiting Results - Vital Signs Recent Vital Signs: Last Vital Signs Temp 98.3 F 10/20/17 08:00 Pulse 66 10/20/17 09:00 Resp 18 10/20/17 08:00 BP 126/71 10/20/17 08:00 Pulse Ox 100 10/20/17 08:00 - Labs Result Diagrams: 10/19/17 15:37 10/19/17 15:37 Labs: Laboratory Results - last 24 hr 10/19/17 10/19/17 10/20/17 15:37 15:37 00:24 WBC 5.0 RBC 4.20 Hgb 12.0 Hct 37.2 MCV 88.6 D MCH 28.5 MCHC 32.1 L RDW 13.9 Plt Count 266 MPV 6.4 L Neut % (Auto) 51.5 Lymph % (Auto) 37.1 Holmes % (Auto) 10.3 H Eos % (Auto) 0.5 Baso % (Auto) 0.6 Neut # 2.6 Lymph # 1.9 Holmes # 0.5 Eos # 0.0 Baso # 0.0 Sodium 139 Potassium 4.2 Chloride 103 Carbon Dioxide 29 Anion Gap 11 BUN 9 Creatinine 0.9 Est GFR ( Amer) > 60 Est GFR (Non-Af Amer) > 60 Random Glucose 88 Calcium 9.1 Total Bilirubin 0.3 AST 24 ALT 33 Alkaline Phosphatase 60 Troponin I < 0.0120 < 0.0120 Total Protein 6.8 Albumin 4.0 Globulin 2.8 Albumin/Globulin Ratio 1.4 Lipase 57 10/20/17 07:56 WBC RBC Hgb Hct MCV MCH MCHC RDW Plt Count MPV Neut % (Auto) Lymph % (Auto) Holmes % (Auto) Eos % (Auto) Baso % (Auto) Neut # Lymph # Holmes # Eos # Baso # Sodium Potassium Chloride Carbon Dioxide Anion Gap BUN Creatinine Est GFR ( Amer) Est GFR (Non-Af Amer) Random Glucose Calcium Total Bilirubin AST ALT Alkaline Phosphatase Troponin I < 0.0120 Total Protein Albumin Globulin Albumin/Globulin Ratio Lipase
--- NOTE | 2017-10-20 11:22 | CARD ---
APPROVED REPORT EXAM: Two-dimensional and M-mode echocardiogram with Doppler and color Doppler. Other Information Quality : GoodRhythm : NSR INDICATION Chest Pain 2D DIMENSIONS IVSd0.87 (0.7-1.1cm)LVDd4.43 (3.9-5.9cm) LVOT Diameter1.96 (1.8-2.4cm)PWd0.82 (0.7-1.1cm) IVSs1.23 (0.8-1.2cm)LVDs2.68 (2.5-4.0cm) FS (%) 39.6 %PWs1.10 (0.8-1.2cm) M-Mode DIMENSIONS Left Atrium (MM)3.21 (2.5-4.0cm)IVSd1.09 (0.7-1.1cm) Aortic Root2.94 (2.2-3.7cm)LVDd5.03 (4.0-5.6cm) Aortic Cusp Exc.2.56 (1.5-2.0cm)PWd1.00 (0.7-1.1cm) IVSs1.47 cmFS (%) 54 % LVDs2.32 (2.0-3.8cm)PWs1.47 cm Mitral Valve MV E Aqatetgc75.5cm/sMV DECEL [id number] A Vobdylgw19.0cm/s MV CCO83raS/A ratio1.6MVA (PHT)4.11cm2 TDI Lateral E' Peak V14.75cm/sMedial E' Peak V11.16cm/sE/Lateral E'4.9 E/Medial E'6.5 Pulmonary Valve PV Peak Snbluuie045.6cm/s LEFT VENTRICLE The left ventricle is normal size. There is normal left ventricular wall thickness. Left ventricle systolic function is normal. The Ejection Fraction is 65-70%. There is normal LV segmental wall motion. The left ventricular diastolic function is normal. RIGHT VENTRICLE The right ventricle is normal size. There is normal right ventricular wall thickness. The right ventricular systolic function is normal. ATRIA The left atrium size is normal. The right atrium size is normal. AORTIC VALVE The aortic valve is normal in structure. No aortic regurgitation is present. There is no aortic valvular stenosis. MITRAL VALVE The mitral valve is normal in structure. There is no evidence of mitral valve prolapse. There is no mitral valve stenosis. There is no mitral valve regurgitation noted. TRICUSPID VALVE The tricuspid valve is normal in structure. There is no tricuspid valve regurgitation noted. There is no tricuspid valve prolapse or vegetation. PULMONIC VALVE The pulmonary valve is normal in structure. There is no pulmonic valvular regurgitation. GREAT VESSELS The aortic root is normal in size. The IVC is normal in size and collapses >50% with inspiration. PERICARDIAL EFFUSION The pericardium appears normal. <Conclusion> The left ventricle is normal size. There is normal left ventricular wall thickness. There is normal LV segmental wall motion. Left ventricle systolic function is normal. The Ejection Fraction is 65-70%. The left ventricular diastolic function is normal.
[2017-10-20 12:49] VITALS: BP 125/77; PULSE 77; TEMP 98.2
--- NOTE | 2017-10-20 14:03 | CP.PCM.HP ---
History of Present Illness - History of Present Illness History of Present Illness: 51 year old female presented with chest pain that began 2 hours prior to admission. No change in pain with position, no dyspnea, nausea, vomiting. Associated with pain on inspiration. Pain is anterior chest, reproducible and improving today. She denies travel, leg pain or palpitations. She has hx of esophageal spams and GERD. States this may be GERD but she is unsure. No cardiac history. Medicaitons :none Allergies: reviewed, nickel, penicillins Present on Admission - Present on Admission Any Indicators Present on Admission: No Review of Systems - Constitutional Constitutional: absent: Anorexia, Daytime Sleepiness - EENT Nose/Mouth/Throat: absent: Nasal Congestion, Nasal Discharge - Cardiovascular Cardiovascular: Chest Pain (anterior). absent: Dyspnea, Palpitations - Respiratory Respiratory: absent: Cough, Stridor - Gastrointestinal Gastrointestinal: absent: Abdominal Pain, Nausea, Vomiting - Musculoskeletal Musculoskeletal: absent: Abnormal Gait, Numbness - Neurological Neurological: absent: Dizziness, Numbness, Tingling, Weakness Past Patient History - Past Medical History & Family History Past Medical History?: Yes - Past Social History Smoking Status: Never Smoked - CARDIAC Hx Mitral Valve Prolapse: Yes - PULMONARY Hx Respiratory Disorders: No - NEUROLOGICAL Hx Neurological Disorder: No - HEENT Hx HEENT Problems: No - RENAL Hx Chronic Kidney Disease: No - ENDOCRINE/METABOLIC Hx Endocrine Disorders: No - HEMATOLOGICAL/ONCOLOGICAL Hx Blood Disorders: No - INTEGUMENTARY Hx Dermatological Problems: No - MUSCULOSKELETAL/RHEUMATOLOGICAL Hx Falls: No - GASTROINTESTINAL Hx Gastrointestinal Disorders: No Hx Gastroesophageal Reflux: Yes - GENITOURINARY/GYNECOLOGICAL Hx Genitourinary Disorders: No - PSYCHIATRIC Hx Substance Use: No - SURGICAL HISTORY Hx Surgeries: Yes Hx Orthopedic Surgery: Yes (right foot) - ANESTHESIA Hx Anesthesia: Yes Hx Anesthesia Reactions: No Meds Home Medications: Home Medication List Medication Instructions Recorded Confirmed Type Famotidine [Pepcid] 20 mg PO BID #30 tab 10/20/17 Rx Allergies/Adverse Reactions: Allergies Allergy/AdvReac Type Severity Reaction Status Date / Time nickel Allergy RASH Verified 10/19/17 14:23 Penicillins Allergy RASH Verified 09/22/17 20:29 Physical Exam - Constitutional Appears: Well - Head Exam Head Exam: ATRAUMATIC, NORMAL INSPECTION, NORMOCEPHALIC - Eye Exam Eye Exam: EOMI, Normal appearance, PERRL - Respiratory Exam Respiratory Exam: Clear to Auscultation Bilateral, NORMAL BREATHING PATTERN Additional comments: anterior chest tenderness, mild - Cardiovascular Exam Cardiovascular Exam: REGULAR RHYTHM, +S1, +S2 - Extremities Exam Extremities exam: Positive for: normal inspection. Negative for: pedal edema - Neurological Exam Neurological exam: Alert, CN II-XII Intact, Normal Gait, Oriented x3 - Psychiatric Exam Psychiatric exam: Normal Affect, Normal Mood - Skin Skin Exam: Dry, Intact, Normal Color, Warm Results - Vital Signs Recent Vital Signs: Last Vital Signs Temp 98.2 F 10/20/17 12:00 Pulse 77 10/20/17 12:00 Resp 18 10/20/17 12:00 BP 125/77 10/20/17 12:00 Pulse Ox 100 10/20/17 12:00 - Labs Result Diagrams: 10/19/17 15:37 10/19/17 15:37 Labs: Laboratory Results - last 24 hr 10/19/17 10/19/17 10/20/17 15:37 15:37 00:24 WBC 5.0 RBC 4.20 Hgb 12.0 Hct 37.2 MCV 88.6 D MCH 28.5 MCHC 32.1 L RDW 13.9 Plt Count 266 MPV 6.4 L Neut % (Auto) 51.5 Lymph % (Auto) 37.1 Ware % (Auto) 10.3 H Eos % (Auto) 0.5 Baso % (Auto) 0.6 Neut # 2.6 Lymph # 1.9 Ware # 0.5 Eos # 0.0 Baso # 0.0 Sodium 139 Potassium 4.2 Chloride 103 Carbon Dioxide 29 Anion Gap 11 BUN 9 Creatinine 0.9 Est GFR ( Amer) > 60 Est GFR (Non-Af Amer) > 60 Random Glucose 88 Calcium 9.1 Total Bilirubin 0.3 AST 24 ALT 33 Alkaline Phosphatase 60 Troponin I < 0.0120 < 0.0120 Total Protein 6.8 Albumin 4.0 Globulin 2.8 Albumin/Globulin Ratio 1.4 Lipase 57 10/20/17 07:56 WBC RBC Hgb Hct MCV MCH MCHC RDW Plt Count MPV Neut % (Auto) Lymph % (Auto) Ware % (Auto) Eos % (Auto) Baso % (Auto) Neut # Lymph # Ware # Eos # Baso # Sodium Potassium Chloride Carbon Dioxide Anion Gap BUN Creatinine Est GFR ( Amer) Est GFR (Non-Af Amer) Random Glucose Calcium Total Bilirubin AST ALT Alkaline Phosphatase Troponin I < 0.0120 Total Protein Albumin Globulin Albumin/Globulin Ratio Lipase Assessment & Plan (1) Chest pain Assessment and Plan: 51 year old female admitted for chest pain rule out ACS. ACS ruled out. Patient seen and evaluated by cardiology. Cleared for discharge. Echo WNL Labs WNL Troponins negative Likely musculoskeletal given its reproducibility and improvement with pepcid and tylenol Status: Acute
== END 2017-10-20 14:17 | disposition home or self-care (01) ==
LOC: H.ER 14:13 → H.ERHOLD 18:33 → H.TEL 21:53
PROVIDERS: ADMIT Internal Medicine; ATTEND Internal Medicine
DX: R07.89 Other chest pain (principal); I34.1 Nonrheumatic mitral (valve) prolapse; K22.4 Dyskinesia of esophagus; K21.9 Gastro-esophageal reflux disease without esophagitis
CPT/HCPCS: 36415; 71020; 76705; 80053; 83690; 84484; 85025; 93005; 93306; 99283; G0378; J1650

== ENCOUNTER 2019-01-13 14:01 | Emergency (ER) | payer OTHER ==
[2019-01-13 14:17] VITALS: RESP 18; O2SAT 100
[2019-01-13] MEDS ORDERED: Sodium Chloride 0.9% 1,000 ML IV STA (14:36)
--- NOTE | 2019-01-13 14:41 | ED PDOC ---
HPI: General Adult Time Seen by Provider: 01/13/19 14:25 Chief Complaint (Nursing): Palpitations Chief Complaint (Provider): Palpitations History Per: Patient History/Exam Limitations: no limitations Onset/Duration Of Symptoms: Days (today) Additional Complaint(s): Pt. with palpitations and light-headed today. Started today at 12pm. States she didn't eat anything today and was going to start at 12pm. Has had cough, body aches since Wednesday and is likely flu. Her daughter was dx with flu. Pt. has had a decreased appetite. No nausea, vomit, diarrhea. No weakness, fever, chest pain, dyspnea, numbness, tingles. No headache. No neck pain. Started period today, and was heavy, so thinks its her anemia as well. Past Medical History Vital Signs: Last Vital Signs Temp 98.4 F 01/13/19 14:14 Pulse 87 01/13/19 14:14 Resp 18 01/13/19 14:14 BP 115/74 01/13/19 14:14 Pulse Ox 100 01/13/19 14:14 - Medical History PMH: Anemia, Fractures (right leg), Mitral Valve Prolapse Denies: Chronic Kidney Disease - Family History Family History: States: Unknown Family Hx - Allergies Allergies/Adverse Reactions: Allergies Allergy/AdvReac Type Severity Reaction Status Date / Time broccoli Allergy SHORTNESS Verified 01/13/19 14:14 OF BREATH nickel Allergy RASH Verified 01/13/19 14:13 nut - unspecified Allergy SHORTNESS Verified 01/13/19 14:14 OF BREATH Penicillins Allergy RASH Verified 01/13/19 14:13 strawberry Allergy SWELLING Verified 01/13/19 14:14 Review of Systems ROS Statement: Except As Marked, All Systems Reviewed And Found Negative Cardiovascular: Positive for: Palpitations Respiratory: Positive for: Cough Neurological: Positive for: Dizziness Physical Exam - Reviewed Nursing Documentation Reviewed: Yes Vital Signs Reviewed: Yes - Physical Exam Appears: Positive for: Non-toxic, No Acute Distress Head Exam: Positive for: ATRAUMATIC, NORMAL INSPECTION, NORMOCEPHALIC Skin: Positive for: Normal Color, Warm, DRY Eye Exam: Positive for: EOMI, Normal appearance, PERRL ENT: Positive for: Normal ENT Inspection Neck: Positive for: Normal, Painless ROM, Supple Cardiovascular/Chest: Positive for: Regular Rate, Rhythm Respiratory: Positive for: CNT, Normal Breath Sounds Gastrointestinal/Abdominal: Positive for: Normal Exam, Soft. Negative for: Tenderness Back: Positive for: Normal Inspection. Negative for: L CVA Tenderness, R CVA Tenderness Extremity: Positive for: Normal ROM. Negative for: Tenderness, Pedal Edema Neurologic/Psych: Positive for: Alert, airport control operator II-XII, Oriented. Negative for: Motor/Sensory Deficits, Aphasia, Facial Droop - Laboratory Results Result Diagrams: 01/13/19 16:06 01/13/19 15:48 Lab Results: 10.5 hg - ECG ECG: Positive for: Interpreted By Me, Viewed By Me ECG Rhythm: Positive for: Normal QRS, Sinus Rhythm, Nonspecific Changes (same as old 10/15) O2 Sat by Pulse Oximetry: 100 Pulse Ox Interpretation: Normal - Progress ED Course And Treament: 1645: Stable. AAOx3. Pain free. Tolerated PO. No dizziness, weakness. Fu with pcp. Disposition - Clinical Impression Clinical Impression: Palpitations, URI (upper respiratory infection), Anemia - Patient ED Disposition Is Patient to be Admitted: No Counseled Patient/Family Regarding: Studies Performed, Diagnosis, Need For Followup - Disposition Referrals: [facility] [Outside] - 01/16/19 Disposition: Routine/Home Disposition Time: 14:48 Condition: STABLE Additional Instructions: Return if not better in 3 days. Instructions: Viral Upper Respiratory Infection, Adult (DC), Palpitations, Anemia Caused by Low Iron Forms: [facility] ([place]), [facility] School/Work Excuse
[2019-01-13 16:12] LABS: ALB/GLOB RATIO 1.2 (1.0-2.1); BLOOD UREA NITROGEN 9 mg/dl (7-17); GFR NON-AFRICAN AMERICAN > 60
[2019-01-13 16:13] LABS: BASO % 0.9 % (0.0-2.0); EOS % 0.7 % (0.0-4.0); HEMOGLOBIN 10.5 g/dL (12.0-16.0); LYMPH # 1.2 K/uL (1.0-4.3); LYMPH % 44.6 % (20.0-40.0); MEAN CELL VOLUME 75.5 fl (81.0-99.0); MEAN CORPUSCULAR HEMOGLOBIN 23.9 pg (27.0-31.0); MEAN CORPUSCULAR HGB CONC 31.7 g/dL (33.0-37.0); MEAN PLATELET VOLUME 6.9 fl (7.2-11.7); MONO # 0.5 K/uL (0.0-0.8); MONO % 17.1 % (0.0-10.0); NEUT % 36.7 % (50.0-75.0); NRBC % 0.4 % (0.0-0.0); RBC 4.41 Mil/uL (3.80-5.20); RED CELL DISTRIBUTION WIDTH 16.4 % (11.5-14.5); WHITE BLOOD COUNT 2.8 K/uL (4.8-10.8)
[2019-01-13 16:19] LABS: ALT/SGPT 23 U/L (9-52); AST/SGOT 41 U/L (14-36)
[2019-01-13 17:31] VITALS: BP 119/66; PULSE 70; TEMP 99.1
--- NOTE | 2019-01-14 13:26 | CARD ---
APPROVED REPORT Date of service: 01/13/2019 EKG Measurement Heart [id number] <Conclusion> Normal sinus rhythm Nonspecific T wave abnormality Abnormal ECG
== END 2019-01-13 17:28 | disposition home or self-care (01) ==
LOC: H.ER 14:01
DX: R00.2 Palpitations (principal); J06.9 Acute upper respiratory infection, unspecified; D64.9 Anemia, unspecified; I34.1 Nonrheumatic mitral (valve) prolapse; Z88.0 Allergy status to penicillin
CPT/HCPCS: 80053; 84484; 85025; 93005; 96360; 99283; J7030